=== PATIENT | male | born 1965 | race African-American/Black ===

== ENCOUNTER 2019-10-09 12:39 | Observation (INO) ==
[2019-10-09] MEDS ORDERED: ONDANSETRON 4 MG/2 ML VIAL IV STA ×2 (13:38→15:57)
[2019-10-09] MEDS ORDERED: SODIUM CHLORIDE 0.9% 500 ML IV STA (13:38)
[2019-10-09 14:10] LABS: Basophils % 0.4 % (0.0-0.8); Eosinophils % 0.1 % (0.00-10.9); Hemoglobin 15.1 GM/DL (14.0-18.0); Immature Granulocytes % 0.4 %; Immature Granulocytes Absolute 0.04 #; Lymphocytes # 1.6 10*3/uL (1.4-4.0); Lymphocytes % 14.6 % (21.2-54.2); Mean Corpuscular HGB Conc 32.8 GM/DL (32-36); Mean Corpuscular Volume 89.1 FL (87-102); Mean Platelet Volume 10.3 FL (9.6-12.0); Monocytes % 7.5 % (1.7-12.7); Platelet Count 270 T/CUMM (130-400); Red Blood Count 5.16 MC/CUMM (3.8-5.5); Red Cell Distribution Width 16.1 % (9.3-17.3); White Blood Count 10.6 T/CUMM (4-12)
[2019-10-09] MEDS ORDERED: PIPERACILLIN/TAZOBACTAM 4,500 MG in SODIUM CHLORIDE 0.9% 100 ML IV STA (14:16)
[2019-10-09 14:26] LABS: Alanine Aminotransferase 32 U/L (16-61); Albumin 3.9 G/DL (3.4-5.0); Alkaline Phosphatase 60 U/L (45-117); Aspartate Amino Transferase 31 U/L (0-37); Blood Urea Nitrogen 19 MG/DL (7-18); Calcium 8.8 MG/DL (8.5-10.1); Estimated Glom Filtration Rate 74 ML/MIN; Glucose 140 MG/DL (74-106); Osmolality,Calculated 271.2 MOS/KG (273-304); Total Protein 7.5 G/DL (6.4-8.3)
[2019-10-09] MEDS ORDERED: PIPERACILLIN/TAZOBACTAM 4,500 MG VIAL IV ONE (14:27)
[2019-10-09] MEDS ORDERED: SODIUM CHLORIDE 0.9% 100 ML IV ONE (14:28)
[2019-10-09 14:44] LABS: Apearance,Urine CLEAR (Clear); Bacteria,Urine Occasional /HPF (Few); Bilirubin,Urine Negative (Negative); Blood, Urine Negative (Negative); Glucose,Urine (UA) Negative (Negative); Ketones,Urine Negative (Negative); Mucus,Urine Occasional /LPF (Occasional); Nitrite,Urine Negative (Negative); Protein,Urine Negative; Urine Color Yellow (Yellow); Urine Specific Gravity > 1.060 (1.001-1.035); Urine Urobilinogen < 2.0 EU/DL (0.2-1.0)
[2019-10-09] MEDS ORDERED: HYDROmorphone 2 MG/1 ML VIAL IV STA (15:57)
[2019-10-09] MEDS: ONDANSETRON 4 MG/2 ML VIAL IV PRN ×2 (17:50→21:20)
[2019-10-09] MEDS: SODIUM CHLORIDE 0.9% 1,000 ML IV SCH ×2 (21:11→21:14)
[2019-10-10] MEDS: ACETAMINOPHEN 325 MG TABLET PO PRN ×2 (00:47→19:57)
[2019-10-10 05:27] LABS: Basophils % 0.3 % (0.0-0.8); Eosinophils # 0.1 10*3/uL (0.0-0.87); Eosinophils % 1.6 % (0.00-10.9); Hematocrit 37.3 VOL% (42.0-52.0); Immature Granulocytes % 0.3 %; Immature Granulocytes Absolute 0.02 #; Lymphocytes # 2.7 10*3/uL (1.4-4.0); Lymphocytes % 37.8 % (21.2-54.2); Mean Corpuscular HGB Conc 32.7 GM/DL (32-36); Mean Corpuscular Volume 88.8 FL (87-102); Mean Platelet Volume 10.6 FL (9.6-12.0); Monocytes % 10.7 % (1.7-12.7); Neutrophils % 49.3 % (38.7-73.9); Red Cell Distribution Width 15.9 % (9.3-17.3)
[2019-10-10 05:54] LABS: Hemoglobin 12.2 GM/DL (14.0-18.0); Platelet Count 206 T/CUMM (130-400); White Blood Count 7.1 T/CUMM (4-12)
[2019-10-10 06:02] LABS: Calcium 8.2 MG/DL (8.5-10.1); Osmolality,Calculated 275.7 MOS/KG (273-304); Risk Ratio 2.39; Thyroid Stimulating Hormone 2.08 uIU/ml (0.358-3.74); VLDL CHOLESTEROL 40.4 MG/DL
[2019-10-10] MEDS: PANTOPRAZOLE 40 MG TABLET PO SCH (09:14)
[2019-10-10] MEDS ORDERED: FLUTICASONE 50 MCG NASAL SPRAY 16 GM BOTTLE BOTH NARES PRN (10:33)
[2019-10-10] MEDS: amLODIPine 10 MG TABLET PO SCH (11:32)
[2019-10-10] MEDS: LISINOPRIL 20 MG TABLET PO SCH (11:32)
[2019-10-10] MEDS ORDERED: LIDOCAINE 1% 20 ML VIAL ONE (12:37)
[2019-10-10] MEDS ORDERED: BUPIVACAINE MPF 0.25% 30 ML VIAL ONE (12:37)
[2019-10-10] MEDS: SODIUM CHLORIDE 0.9% 1,000 ML IV SCH ×2 (19:59→22:19)
[2019-10-10 22:52] LABS: Apearance,Urine CLEAR (Clear); Bilirubin,Urine Negative (Negative); Blood, Urine Small mg/dL (Negative); Glucose,Urine (UA) Negative (Negative); Ketones,Urine Negative (Negative); Nitrite,Urine Negative (Negative); Protein,Urine Negative; RBC,Urine 1 /HPF (0-4); Urine Color Colorless (Yellow); Urine Specific Gravity 1.006 (1.001-1.035); Urine Urobilinogen < 2.0 EU/DL (0.2-1.0); WBC,Urine <1 /HPF (0-6)
[2019-10-11 05:44] LABS: Basophils % 0.6 % (0.0-0.8); Eosinophils # 0.1 10*3/uL (0.0-0.87); Eosinophils % 2.5 % (0.00-10.9); Hematocrit 34.6 VOL% (42.0-52.0); Hemoglobin 11.4 GM/DL (14.0-18.0); Immature Granulocytes % 0.4 %; Immature Granulocytes Absolute 0.02 #; Lymphocytes # 2.3 10*3/uL (1.4-4.0); Lymphocytes % 47.7 % (21.2-54.2); Mean Corpuscular HGB Conc 32.9 GM/DL (32-36); Mean Corpuscular Volume 89.6 FL (87-102); Mean Platelet Volume 10.1 FL (9.6-12.0); Monocytes % 9.4 % (1.7-12.7); Neutrophils % 39.4 % (38.7-73.9); Platelet Count 196 T/CUMM (130-400); Red Blood Count 3.86 MC/CUMM (3.8-5.5); Red Cell Distribution Width 15.9 % (9.3-17.3); White Blood Count 4.8 T/CUMM (4-12)
[2019-10-11 05:58] LABS: Osmolality,Calculated 275.5 MOS/KG (273-304)
[2019-10-11 06:00] LABS: Alanine Aminotransferase 24 U/L (16-61); Albumin 3.1 G/DL (3.4-5.0); Alkaline Phosphatase 59 U/L (45-117); Aspartate Amino Transferase 19 U/L (0-37); Bilirubin,Direct < 0.100 MG/DL (0.0-0.20); Bilirubin,Indirect 0.5 MG/DL (0.0-1.0); Total Protein 6.2 G/DL (6.4-8.3)
[2019-10-11] MEDS: ACETAMINOPHEN 325 MG TABLET PO PRN (08:26)
[2019-10-11] MEDS: LISINOPRIL 20 MG TABLET PO SCH (08:26)
[2019-10-11] MEDS: PANTOPRAZOLE 40 MG TABLET PO SCH (08:27)
[2019-10-11] MEDS: amLODIPine 10 MG TABLET PO SCH (08:27)
[2019-10-11] MEDS: SODIUM CHLORIDE 0.9% 1,000 ML IV SCH (08:30)
[2019-10-11 13:38] VITALS: BP 127/62
== END 2019-10-11 14:00 | disposition home or self-care (01) ==
LOC: N.EDINP 12:39 → N.ED 12:39 → N.EDINP 19:20 → N.2W 19:41
PROVIDERS: ADMIT Internal Medicine; ATTEND Internal Medicine

== ENCOUNTER 2020-05-01 12:01 | Observation (INO) ==
[2020-05-01] MEDS ORDERED: SODIUM CHLORIDE 0.9% 1,000 ML IV STA (12:27)
[2020-05-01 12:55] LABS: Basophils % 0.4 % (0.0-0.8); Eosinophils # 0.1 10*3/uL (0.0-0.87); Eosinophils % 0.8 % (0.00-10.9); Hematocrit 41.5 VOL% (42.0-52.0); Hemoglobin 14.1 GM/DL (14.0-18.0); Immature Granulocytes % 0.5 %; Immature Granulocytes Absolute 0.04 #; Lymphocytes % 23.3 % (21.2-54.2); Mean Corpuscular Volume 87.6 FL (87-102); Monocytes % 14.9 % (1.7-12.7); Neutrophils % 60.1 % (38.7-73.9); Platelet Count 221 T/CUMM (130-400); Red Blood Count 4.74 MC/CUMM (3.8-5.5); Red Cell Distribution Width 17.6 % (9.3-17.3); White Blood Count 8.4 T/CUMM (4-12)
[2020-05-01 13:02] LABS: Apearance,Urine Slightly Hazy (Clear); Bacteria,Urine Occasional /HPF (Few); Bilirubin,Urine Negative (Negative); Blood, Urine Small mg/dL (Negative); Glucose,Urine (UA) Negative (Negative); Hyaline Casts,Urine 21 /LPF (0-3); Ketones,Urine Negative (Negative); Mucus,Urine Occasional /LPF (Occasional); Nitrite,Urine Negative (Negative); Protein,Urine 30 MG/DL; RBC,Urine 2 /HPF (0-4); Squamous Epithelial Cell,Urine Occasional /HPF (0-10); Urine Color Yellow (Yellow); Urine Specific Gravity 1.018 (1.001-1.035); Urine Urobilinogen < 2.0 EU/DL (0.2-1.0); WBC,Urine 3 /HPF (0-6)
[2020-05-01 13:11] LABS: Bilirubin,Total 1.1 MG/DL (0.2-1.0); Calcium 8.6 MG/DL (8.5-10.1); Osmolality,Calculated 270.7 MOS/KG (273-304); Total Protein 7.9 G/DL (6.4-8.3)
[2020-05-01] MEDS ORDERED: ONDANSETRON 4 MG/2 ML VIAL IV STA (13:44)
[2020-05-01] MEDS ORDERED: GLUCAGON 1 MG VIAL IM PRN (14:55)
[2020-05-01] MEDS ORDERED: DEXTROSE 50% 25 GM/50 ML VIAL IV PRN (14:55)
[2020-05-01] MEDS: ENOXAPARIN 30 MG/0.3 ML SYRINGE SUBCUT SCH (18:07)
[2020-05-01] MEDS: PANTOPRAZOLE 40 MG VIAL IV SCH (18:07)
[2020-05-01] MEDS: SODIUM CHLORIDE 0.9% 1,000 ML IV SCH ×2 (18:23→23:59)
[2020-05-01] MEDS: MORPHINE 4 MG/1 ML VIAL IV PRN (19:42)
[2020-05-02] MEDS: SODIUM CHLORIDE 0.9% 1,000 ML IV SCH ×2 (03:00→18:06)
[2020-05-02] MEDS: MORPHINE 4 MG/1 ML VIAL IV PRN ×3 (03:25→21:27)
[2020-05-02 05:18] LABS: Basophils % 0.5 % (0.0-0.8); Eosinophils # 0.1 10*3/uL (0.0-0.87); Eosinophils % 1.9 % (0.00-10.9); Hematocrit 34.9 VOL% (42.0-52.0); Hemoglobin 11.4 GM/DL (14.0-18.0); Immature Granulocytes % 0.3 %; Immature Granulocytes Absolute 0.02 #; Lymphocytes % 34.8 % (21.2-54.2); Mean Corpuscular HGB Conc 32.7 GM/DL (32-36); Mean Corpuscular Volume 90.9 FL (87-102); Mean Platelet Volume 9.4 FL (9.6-12.0); Monocytes % 13.6 % (1.7-12.7); Neutrophils % 48.9 % (38.7-73.9); Platelet Count 163 T/CUMM (130-400); Red Blood Count 3.84 MC/CUMM (3.8-5.5); Red Cell Distribution Width 17.1 % (9.3-17.3); White Blood Count 5.8 T/CUMM (4-12)
[2020-05-02] MEDS: PANTOPRAZOLE 40 MG VIAL IV SCH (11:58)
[2020-05-02] MEDS: ONDANSETRON 4 MG/2 ML VIAL IV PRN ×2 (17:40→23:08)
[2020-05-02] MEDS: ENOXAPARIN 30 MG/0.3 ML SYRINGE SUBCUT SCH (18:06)
[2020-05-03] MEDS: SODIUM CHLORIDE 0.9% 1,000 ML IV SCH ×2 (01:54→09:59)
[2020-05-03 06:32] LABS: Basophils % 0.7 % (0.0-0.8); Eosinophils # 0.2 10*3/uL (0.0-0.87); Eosinophils % 3.7 % (0.00-10.9); Hematocrit 33.1 VOL% (42.0-52.0); Hemoglobin 10.7 GM/DL (14.0-18.0); Immature Granulocytes % 0.2 %; Immature Granulocytes Absolute 0.01 #; Lymphocytes # 1.9 10*3/uL (1.4-4.0); Lymphocytes % 41.1 % (21.2-54.2); Mean Corpuscular HGB Conc 32.3 GM/DL (32-36); Mean Corpuscular Volume 90.9 FL (87-102); Monocytes % 13.3 % (1.7-12.7); Platelet Count 170 T/CUMM (130-400); Red Blood Count 3.64 MC/CUMM (3.8-5.5); White Blood Count 4.6 T/CUMM (4-12)
[2020-05-03 06:54] LABS: Calcium 7.8 MG/DL (8.5-10.1); Osmolality,Calculated 277.4 MOS/KG (273-304)
[2020-05-03] MEDS ORDERED: amLODIPine 10 MG TABLET PO ONE (08:30)
[2020-05-03] MEDS: PANTOPRAZOLE 40 MG VIAL IV SCH (09:54)
[2020-05-03 11:56] VITALS: BP 148/51
== END 2020-05-03 14:05 | disposition home or self-care (01) ==
LOC: N.EDINP 12:01 → N.ED 12:01 → SUATTDRO 14:55 → N.EDINP 17:46 → N.3E 17:52
PROVIDERS: ADMIT Internal Medicine; ATTEND Internal Medicine